=== PATIENT | female | born 1980 | race Caucasian/White ===

== ENCOUNTER 2021-12-02 12:50 | Day surgery (SDC) | payer OTHER ==
[~2021-12-02] VITALS: Ht 165 cm; Wt 49.5 kg
[2021-12-02] VITALS (7 sets, daily range): BP systolic 103–127; BP diastolic 56–80
[2021-12-02] MEDS ORDERED: HEParin (CENTRAL IV FLUSH) 500 UNIT/5 ML SYR ONE (13:17)
[2021-12-02] MEDS ORDERED: 0.9% SODIUM CHLORIDE PF INJ 20 ML VIAL ONE (13:17)
[2021-12-02] MEDS ORDERED: BUP/EPI 0.5% 1:200,000 (SENSORCAINE) 30 ML VIAL ONE (13:17)
[2021-12-02] MEDS ORDERED: PROPOFOL INJECTION 50 ML IV ONE (14:07)
[2021-12-02] MEDS ORDERED: LIDOCAINE PF 2% 5 ML (XYLOCAINE) VIAL ONE (14:07)
[2021-12-02] MEDS ORDERED: MIDAZOLAM 2 MG/2 ML (VERSED) VIAL ONE (14:07)
[2021-12-02] MEDS ORDERED: ceFAZolin 2 GM IV Premixed 50 ML IV ONE (14:15)
[2021-12-02] MEDS ORDERED: LACTATED RINGERS 1,000 ML IV PRN (14:15)
[2021-12-02] MEDS ORDERED: CETI10CA11 PO (14:18)
--- NOTE | 2021-12-02 14:52 | Progress Note-Pre Operative ---
Pre-Operative Progress Note H&P Reviewed The H&P was reviewed, patient examined and no changes noted. Date Seen by Provider: Dec 02, 2021 Time Seen by Provider: 14:51 Date H&P Reviewed: Dec 02, 2021 Time H&P Reviewed: 14:51 Pre-Operative Diagnosis: right breast cancer MEEK ONEIL DO Dec 02, 2021 14:52
[2021-12-02] MEDS ORDERED: fentaNYL INJ 100 MCG/2 ML AMP ONE (15:34)
[2021-12-02] MEDS ORDERED: ONDANSETRON 4 MG/2 ML (SDV) Z0FRAN ONE (16:04)
--- NOTE | 2021-12-02 16:20 | Anesthesia-General Post-Op ---
MAC Patient Condition Mental Status/LOC: Same as Preop Cardiovascular: Satisfactory Nausea/Vomiting: Absent Respiratory: Satisfactory Pain: Controlled Complications: Absent Post Op Complications Complications None Follow Up Care/Instructions Patient Instructions None needed. Anesthesiology Discharge Order Discharge Order Patient is doing well, no complaints, stable vital signs, no apparent adverse anesthesia problems. No complications reported per nursing. BAKARI VALENTINO CRNA Dec 02, 2021 16:20
--- NOTE | 2021-12-02 16:20 | Progress Note-Post Operative ---
Post-Operative Progess Note Surgeon (s)/Customs Collector (s) Surgeon MEEK ONEIL DO Customs Collector: na Pre-Operative Diagnosis right breast cancer Post-Operative Diagnosis same Procedure & Operative Findings Date of Procedure 12/02/21 Procedure Performed/Findings PROCEDURE: Left internal jugular port placement using ultrasound guidance. COMPLICATIONS: None. INDICATIONS: The patient is a 41 year old female diagnosed with triple negative breast cancer of right breast. Patient understands the risks and benefits of port placement and wished to proceed with the procedure. Consent was signed on the chart. PROCEDURE: The patient was taken to the operating suite, was prepped and draped in the sterile fashion. A surgical pause was performed. Ultrasound was used to locate the internal jugular vein. Once located anesthetic was infiltrated above it. Using micro-access kit, the right internal vein was accessed. Dark nonpulsatile blood was withdrawn. The wire was inserted. Fluoroscopy assured proper placement. The needle was removed. The micro-access dilator was advanced over the wire and the wire was removed. The regular wire was inserted and fluoroscopy assured proper placement. The wire was then secured. Local anesthetic was used to anesthetize from the neck for tunneling down to the right chest and for pocket creation. A 15 blade scalpel was used to make an incision over the left chest. Cautery was used to dissect down to the pectoral fascia. A pocket was created with blunt dissection. The dilator sheath was then advanced over the wire under fluoroscopy and the dilator and wire were removed. The Gro[place]ong catheter was inserted through the sheath and the sheath was then removed. The [place] wire was removed. The catheter was then tunneled to the right chest pocket. Fluoroscopy was used to cut to length and this was then attached to the port which was then placed within the pocket. The port was then accessed without difficulty. It was then flushed with saline and then heparin. The subcutaneous tissues were then reapproximated using 3-0 Vicryl. The areas were then washed and dried. Skin Affix was placed over incision. The insertion point of the neck Skin Affix was placed over the incision. The patient tolerated the procedure well without complication and was taken to recovery room in stable condition. Chest x-ray is pending. Anesthesia Type mac c local Estimated Blood Loss Estimated blood loss (mL): minimal Specimens/Packing Specimens Removed MEEK Streeter DO Dec 02, 2021 16:20
--- NOTE | 2021-12-02 16:23 | Discharge Inst-Simple/Standard ---
Discharge Inst-Standard Patient Instructions/Follow Up Plan of Care/Instructions/FU: 2 weeks [place] Activity as Tolerated: No Discharge Diet: Regular Diet Other Inst to Patient Follow up Appt: Make appointment for 2 week. Instructions: No lifting greater than 10 pounds. No strenuous activity. May shower in 24 hours, no tub bath or soaking. Use incentive spirometer at home as directed. No Smoking Skin/Wound Care: You have special glue over your incision that will fall off on it's own. Ice pack over area for 15 min and off 30 min and repeat for first 48 hours. This reduces swelling and discomfort. Symptoms to Report: Appetite Changes, Extremity Discoloration, Numbness/Tingling, Swelling Increase d, Bleeding Excessive, Eyesight Changes, Pain Increased, Urine Color Change, Constipation(Persistent), Fever over 101 degree F, Pain/Pressure in chest, Urinating Difficulty, Cough Up/Vomit Blood, Heart Beat Irreg/Pounding, Pain/Pressure in jaw, Vaginal Bleeding Increase, Cramps in feet or legs, Lightheadedness, Pain/Pressure in shoulder, Diarrhea(Persistent), Memory Changes Suddenly, Questions/Concerns, Weight gain consecutive days, Dizziness/Fainting, Nausea/Vomiting, Shortness of Breath, Weight gain over 2 pounds If questions or concerns contact your physician Or seek help at emergency department. MEEK ONEIL DO Dec 02, 2021 16:23
[2021-12-02] MEDS ORDERED: PROMETHAZINE INJ 25 MG/ML (PHENERGAN) AMP IVP ONE (16:30)
[2021-12-02] MEDS ORDERED: morphine INJ 10 MG/ML 1ML (SYR OR VIAL) IVP ONE (16:30)
[2021-12-02] MEDS ORDERED: ONDANSETRON 4 MG/2 ML (SDV) Z0FRAN IVP PRN (16:30)
--- NOTE | 2021-12-02 17:04 | Diagnostic Imaging Report ---
INDICATION: Port-A-Cath placement. EXAMINATION: Frontal chest was obtained at 4:38 p.m. COMPARISON: There is no prior study for comparison. There is a left-sided Port-A-Cath seen with catheter entering the left internal jugular vein with catheter tip overlying the upper SVC. Heart and mediastinal silhouette are normal in appearance. The lungs appear clear. There is no pneumothorax or pleural fluid. IMPRESSION: Port-A-Cath in place with no acute process in the chest. Dictated by: Dictated on workstation # [id number]
--- NOTE | 2021-12-02 17:17 | Diagnostic Imaging Report ---
INDICATION: Port placement. EXAMINATION: Two intraoperative images were obtained. FINDINGS: 45.1 seconds of fluoroscopy was utilized. This was done during placement of an [id number] catheter which overlies the left hemithorax and has its tip in the upper superior vena cava. IMPRESSION: Intraoperative fluoroscopy as described. Dictated by: Dictated on workstation # [id number]
== END 2021-12-02 17:35 ==
LOC: SDC 12:50
PROVIDERS: ATTEND Surgery
DX: C50.911 Malignant neoplasm of unspecified site of right female breast (principal)
CPT/HCPCS: 36561; 71045; 76000; 84703; 87081; C1788

== ENCOUNTER → 2021-12-02 | Outpatient (CLI) | payer OTHER ==
[~2021-12-02] MED LIST: CETI10CA11 PO
== END | disposition home or self-care (01) ==
LOC: PREOP 09:12
PROVIDERS: ATTEND Surgery
DX: Z01.818 Encounter for other preprocedural examination (principal)

== ENCOUNTER → 2021-12-07 | Outpatient (CLI) | payer OTHER | LOC: CARD 13:00 | PROVIDERS: ATTEND Internal Medicine Hematology & Oncology | DX: Z01.810 Encounter for preprocedural cardiovascular examination (principal); Z13.6 Encounter for screening for cardiovascular disorders; C50.511 Malignant neoplasm of lower-outer quadrant of right female breast; C77.3 Secondary and unspecified malignant neoplasm of axilla and upper limb lymph nodes | CPT/HCPCS: 93306 ==